=== PATIENT | male | born 1995 | race Caucasian/White ===

== ENCOUNTER 2022-10-30 16:58 | Emergency (ER) | payer OTHER ==
[~2022-10-30] VITALS: Ht 160 cm; Wt 107.0 kg
[2022-10-30 17:11] VITALS: BP 121/67
[2022-10-30] MEDS ORDERED: IBUPROFEN 600 MG TAB PO ONE (17:50)
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
[2022-10-30] MEDS ORDERED: IBUP-1842 PO (18:53)
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
== END 2022-10-30 19:06 | disposition home or self-care (01) ==
LOC: MED 16:58
DX: S46.812A Strain of other muscles, fascia and tendons at shoulder and upper arm level, left arm, initial encounter (principal); S20.212A Contusion of left front wall of thorax, initial encounter; S80.02XA Contusion of left knee, initial encounter; R10.32 Left lower quadrant pain; Z79.1 Long term (current) use of non-steroidal anti-inflammatories (NSAID); V49.49XA Driver injured in collision with other motor vehicles in traffic accident, initial encounter; Y93.89 Activity, other specified; Y92.410 Unspecified street and highway as the place of occurrence of the external cause; Y99.8 Other external cause status
CPT/HCPCS: 71045; 73562; 99284